=== PATIENT | male | born 1985 | race Caucasian/White ===

== ENCOUNTER → 2018-03-15 | Outpatient (CLI) | payer OTHER ==
--- NOTE | 2018-03-15 15:26 | RAD ---
EXAM: Carotid Doppler sonogram. HISTORY: Dizziness. Left arm numbness. TECHNIQUE: Smith scale and color Doppler sonographic evaluation of the neck with spectral waveform analysis was performed and static images are submitted for review. FINDINGS: The peak systolic velocity within the right common carotid artery is 1 heart and 9 cm/sec. The peak systolic velocity within the right internal carotid artery is 79 cm/sec and the end diastolic velocity within the right internal carotid artery is 38 cm/sec. The right ICA/CCA ratio is 0.72. The peak systolic velocity within the left common carotid artery is 105 cm/sec. The peak systolic velocity within the left internal carotid artery is 91 cm/sec and the end diastolic velocity within the left internal carotid artery is 40 cm/sec. The left ICA/CCA ratio is 0.87. There is normal antegrade flow within both vertebral arteries. IMPRESSION: 1. Borderline elevated end diastolic velocity within the left internal carotid artery. There is no corresponding increase in peak systolic velocity or increased ICA to CCA ratio to suggest greater than 50% stenosis. 2. No Doppler evidence of hemodynamically cysts within the right internal carotid artery or vertebral arteries. PQRS Compliance Statement - Stenosis calculations for CT, MR and conventional angiography are based upon measurement of the distal ICA diameter in accordance with the NASCET methodology. Stenosis calculations for carotid ultrasound studies are derived from validated velocity criteria which are known to correlate with the NASCET methodology. Electronically signed by: Justina Ruiz MD (03/15/2018 3:22 PM) [place] [id number]
--- NOTE | 2018-03-15 15:44 | RAD ---
EXAM: Head CT without contrast. HISTORY: Left arm paresthesia. TECHNIQUE: Computed tomographic images of the head were obtained without contrast. *One or more of the following individualized dose reduction techniques were utilized for this examination: 1. Automated exposure control. 2. Adjustment of the mA and/or kV according to patient size. 3. Use of iterative reconstruction technique. COMPARISON: None. FINDINGS: There is no acute or subacute extra-axial or intraparenchymal hemorrhage. There is no mass effect or midline shift. There is no hydrocephalus. The skelton-white matter differential pattern is intact. The visualized portions of the orbits, paranasal sinuses and mastoid air cells are unremarkable. No suspicious calvarial lesion is seen. IMPRESSION: No acute intracranial findings. Electronically signed by: Justina Ruiz MD (03/15/2018 3:40 PM) [place] [id number]
== END | disposition home or self-care (01) ==
LOC: CT 14:13
PROVIDERS: ATTEND Physician Assistant
DX: R42 Dizziness and giddiness (principal)
CPT/HCPCS: 70450; 93880

== ENCOUNTER → 2018-03-16 | Outpatient (CLI) | payer OTHER ==
[~2018-03-16] MED LIST: IOHEXOL 350 MG/ML 100 ML VIAL. IV ONE
--- NOTE | 2018-03-16 17:46 | RAD ---
PQRS Compliance Statement: One or more of the following individualized dose reduction techniques were utilized for this examination: 1. Automated exposure control 2. Adjustment of the mA and/or kV according to patient size 3. Use of iterative reconstruction technique CT CHEST WITH CONTRAST, PULMONARY ANGIOGRAM History: CHEST PAIN, ELEVATED D-DIMER. Comparison: None. Technique: Helical CT of the chest was performed after the administration of 100 cc of Omnipaque 350 intravenous contrast according to PE protocol. Axial and coronal reconstructions were obtained. 3-D MIP images were constructed to better evaluate the pulmonary arteries. Findings: Pulmonary arteries are adequately opacified. There is no evidence of pulmonary embolism. There is no thoracic aortic dissection. Residual thymus in the anterior mediastinum. There is no adenopathy in the chest. Great vessels normal caliber. Cardiac size normal, no pericardial effusion. There is no pleural effusion. Nonspecific left lateral paraspinal extrapleural soft tissue density, image 73. The central airways are patent. There is minimal atelectasis or scarring in the right middle lobe in the inferior lingula. There is a 5 mm nodule in the right lower lobe abutting the pleural surface, image 65. There is fatty infiltration of the liver. Bones unremarkable. IMPRESSION: 1. There is no CT evidence of pulmonary embolus. 2. There is a 5 mm nodule in the right lower lobe. If patient has risk factors for lung malignancy suggest CT chest follow-up in 12 months per Fleischner Society guidelines. If patient does not has risk factors, no further follow-up is required. 3. Fatty infiltration of the liver. Electronically signed by: Sharif Ames MD (03/16/2018 5:42 PM) [facility]
== END | disposition home or self-care (01) ==
LOC: CT 16:45
PROVIDERS: ATTEND Physician Assistant
DX: R91.1 Solitary pulmonary nodule (principal); K76.0 Fatty (change of) liver, not elsewhere classified; I10 Essential (primary) hypertension
CPT/HCPCS: 71275; Q9967